=== PATIENT | male | born 1980 | race Caucasian/White ===

== ENCOUNTER 2018-10-13 11:24 | Emergency (ER) | payer SELFPAY ==
[2018-10-13] MEDS ORDERED: Sodium Chloride 0.9% 10 ML Syringe FLUSH PRN (12:01)
--- NOTE | 2018-10-13 12:23 | EDM.PDOC ---
ED HPI GENERAL MEDICAL PROBLEM - General Chief Complaint: Neurological Problem Stated Complaint: COLLAPSED ON SATURDAY Time Seen by Provider: 10/13/18 11:29 Source of Information: Reports: Patient, Family History Limitations: Reports: No Limitations - History of Present Illness INITIAL COMMENTS - FREE TEXT/NARRATIVE: The patient presents with right sided numbness and weakness. This weekend he was visiting family in [place]. He was feeling fine and he walked around the packer inspector in the house and he passed out. His said the patient was out for about 2 minutes and he had some shaking like with a fever and not full body convulsions. He may have hit his head. He had numbness and weakness to the right side of his body that includes his face, arm and leg. EMS took him to [facility] [place] and he had a complete work up done to include a CT of his head, EKG, and labs. It was thought he may have had a TIA. He was told to follow up with his health car provider and have an MRI done. He came to the ER because he is till having the numbness and weakness and he has some blurry vision at times. He denies having a headache. He has no fever, chills, or cough. He has no chest pain or shortness of breath. He has no abdominal pain, nausea or vomiting. This has never happened to him before He has hypertension and he is on losartin. Onset: Sudden Duration: Day(s): Severity: Moderate Improves with: Reports: None Worsens with: Reports: None Associated Symptoms: Reports: No Other Symptoms - Related Data Allergies Allergy/AdvReac Type Severity Reaction Status Date / Time No Known Allergies Allergy Verified 10/13/18 11:36 Home Meds: Home Meds Losartan [Cozaar] 50 mg PO DAILY 10/13/18 [History] Past Medical History Cardiovascular History: Reports: Hypertension Social & Family History - Family History Cardiac: Reports: Hypertension Neurological: Reports: CVA Other Neurological Family History: maternal grandmother - Tobacco Use Smoking Status *Q: Current Every Day Smoker Years of Tobacco use: 23 Packs/Tins Daily: 1 - Alcohol Use Days Per Week of Alcohol Use: 7 Number of Drinks Per Day: 6 Total Drinks Per Week: 42 - Recreational Drug Use Recreational Drug Use: Yes ED ROS GENERAL - Review of Systems Review Of Systems: See Below Constitutional: Reports: No Symptoms HEENT: Reports: No Symptoms Respiratory: Reports: No Symptoms Cardiovascular: Reports: No Symptoms Endocrine: Reports: No Symptoms GI/Abdominal: Reports: No Symptoms : Reports: No Symptoms Musculoskeletal: Reports: No Symptoms Skin: Reports: No Symptoms Neurological: Reports: Numbness (right side), Weakness (right side). Denies: Headache ED EXAM, NEURO - Physical Exam Exam: See Below Exam Limited By: No Limitations General Appearance: Alert, No Apparent Distress Eye Exam: Bilateral Eye: EOMI, PERRL Ears: Normal External Exam Nose: Normal Inspection Head Exam: Atraumatic, Normocephalic Neck: Normal Inspection Respiratory/Chest: No Respiratory Distress, Lungs Clear, Normal Breath Sounds Cardiovascular: Regular Rate, Rhythm, No Edema, No Murmur GI/Abdominal: Soft, Non-Tender, No Organomegaly, No Mass Neurological: Alert, Oriented x 3, Other (Mild weakness to right arm, hand and leg. Mild numbness with light palpation right face, arm and leg as compared to the right left side) Course - Vital Signs Last Recorded V/S: Last Vital Signs Temp 97.8 F 10/13/18 11:31 Pulse 106 H 10/13/18 11:31 Resp 16 10/13/18 11:31 BP 160/104 H 10/13/18 11:31 Pulse Ox 98 10/13/18 11:31 - Orders/Labs/Meds Orders: Active Orders 24 hr Category Date Time Status Cardiac Monitoring [RC] . DIRECTED Care 10/13/18 12:01 Active EKG Documentation Completion [RC] ASDIRECTED Care 10/13/18 12:09 Active Peripheral IV Care [RC] . DIRECTED Care 10/13/18 12:02 Active Sodium Chloride 0.9% [Saline Flush] Med 10/13/18 12:01 Active 10 ml FLUSH ASDIRECTED PRN Peripheral IV Insertion Adult [OM.PC] Stat Oth 10/13/18 12:01 Ordered EKG 12 Lead [EK] Stat Ther 10/13/18 12:09 Ordered Medication Orders Sodium Chloride (Saline Flush) 10 ml FLUSH ASDIRECTED PRN PRN Reason: Keep Vein Open Last Admin: 10/13/18 12:16 Dose: 10 ml Labs: Laboratory Tests 10/13/18 10/13/18 Range/Units 12:29 12:29 WBC 6.96 (4.23-9.07) K/mm3 RBC 5.04 (4.63-6.08) M/mm3 Hgb 16.4 (13.7-17.5) gm/L Hct 48.3 (40.1-51.0) % MCV 95.8 H (79.0-92.2) fl MCH 32.5 H (25.7-32.2) pg MCHC 34.0 (32.2-35.5) g/dl RDW Std Deviation 44.8 H (35.1-43.9) fL Plt Count 266 (163-337) K/mm3 MPV 8.7 L (9.4-12.3) fl Neut % (Auto) 51.9 (34.0-67.9) % Lymph % (Auto) 32.3 (21.8-53.1) % [place] % (Auto) 12.1 (5.3-12.2) % Eos % (Auto) 2.4 (0.8-7.0) Baso % (Auto) 0.9 (0.1-1.2) % Neut # (Auto) 3.61 (1.78-5.38) K/mm3 Lymph # (Auto) 2.25 (1.32-3.57) K/mm3 [place] # (Auto) 0.84 H (0.30-0.82) K/mm3 Eos # (Auto) 0.17 (0.04-0.54) K/mm3 Baso # (Auto) 0.06 (0.01-0.08) K/mm3 Sodium 142 (136-145) mEq/L Potassium 4.1 (3.5-5.1) mEq/L Chloride 105 (98-107) mEq/L Carbon Dioxide 25 (21-32) mEq/L Anion Gap 16.1 H (5-15) BUN 9 (7-18) mg/dL Creatinine 1.0 (0.7-1.3) mg/dL Est Cr Clr Drug Dosing 105.63 mL/min Estimated GFR (MDRD) > 60 (>60) mL/min BUN/Creatinine Ratio 9.0 L (14-18) Glucose 93 (74-106) mg/dL Calcium 9.4 (8.5-10.1) mg/dL Total Bilirubin 0.6 (0.2-1.0) mg/dL AST 32 (15-37) U/L ALT 35 (16-63) U/L Alkaline Phosphatase 65 (46-116) U/L Troponin I < 0.017 (0.00-0.056) ng/mL Total Protein 7.4 (6.4-8.2) g/dl Albumin 4.1 (3.4-5.0) g/dl Globulin 3.3 gm/dL Albumin/Globulin Ratio 1.2 (1-2) Meds: Medications Generic Name Dose Route Start Last Admin Trade Name Freq PRN Reason Stop Dose Admin Sodium Chloride 10 ml 10/13/18 12:01 10/13/18 12:16 Saline Flush FLUSH 10 ml ASDIRECTED PRN Administration Keep Vein Open - Re-Assessments/Exams Free Text/Narrative Re-Assessment/Exam: 10/13/18 12:25 I ordered an MRI of his brain, EKG, and labs. 10/13/18 14:20 His CBC and CMP look good. His troponin is negative. We were able to get an MRI of his brain. The MRI showed slight sinus findings believed to be chronic. Several minimal areas of increased signal within the subcortical white matter within the right frontal and right parietal region which is likely incidental. No other abnormal signal is seen within the brain parenchyma. No acute diffusion abnormalities are seen. 10/13/18 14:36 I called [facility] in [place] and talked with Dr Antonio the neurologist pulmonary care nurse. We discussed the MRI and the physical findings and he says the patient did not have a stroke but he is not sure why he is having the numbness and weakness on his right side. His office will call the patient to make an appointment. Departure - Departure Time of Disposition: 14:40 Disposition: Home, Self-Care 01 Condition: Good Clinical Impression: Right sided numbness, Right sided weakness - Discharge Information *PRESCRIPTION DRUG MONITORING PROGRAM REVIEWED*: Not Applicable *COPY OF PRESCRIPTION DRUG MONITORING REPORT IN PATIENT MARY KAY: Not Applicable Referrals: PCP,None [Primary Care Provider] - Forms: ED Department Discharge Additional Instructions: Take your medication as prescribed. It has been 2 weeks and if you are tolerating it then go up as directed. Please return if you are worse. Someone from Dr Antonio's office will be calling you for a follow up appointment. - My Orders Last 24 Hours: My Active Orders 10/13/18 12:01 Cardiac Monitoring [RC] . DIRECTED Sodium Chloride 0.9% [Saline Flush] 10 ml FLUSH ASDIRECTED PRN Peripheral IV Insertion Adult [OM.PC] Stat 10/13/18 12:02 Peripheral IV Care [RC] . DIRECTED 10/13/18 12:09 EKG Documentation Completion [RC] ASDIRECTED EKG 12 Lead [EK] Stat - Assessment/Plan Last 24 Hours: My Active Orders 10/13/18 12:01 Cardiac Monitoring [RC] . DIRECTED Sodium Chloride 0.9% [Saline Flush] 10 ml FLUSH ASDIRECTED PRN Peripheral IV Insertion Adult [OM.PC] Stat 10/13/18 12:02 Peripheral IV Care [RC] . DIRECTED 10/13/18 12:09 EKG Documentation Completion [RC] ASDIRECTED EKG 12 Lead [EK] Stat
--- NOTE | 2018-10-13 13:13 | MR ---
MRI brain Technique: T1 sagittal; T2, T2 FLAIR, T1 and diffusion axial; T1 and T2 gradient echo coronal images were obtained. Comparison: No prior intracranial imaging. Findings: Ventricles along with basal cisterns and sulci of the convexities are within normal limits for the patient's age. Normal signal void is seen within the major cerebral arteries within the skull base. Minimal area of increase signal is seen within subcortical white matter within the right frontal and parietal regions. No other abnormal signal is seen within the brain parenchyma. No midline shift or mass effect is seen. Small retention cyst is incidentally noted within the left maxillary sinus measuring 9.6 mm. Mild mucosal thickening seen within the ethmoid sinus. No acute diffusion abnormalities are seen. Impression: 1. Slight sinus findings believed to be chronic. 2. Several minimal areas of increased signal within the subcortical white matter within the right frontal and right parietal region which is likely incidental. No other abnormal signal is seen within the brain parenchyma. No acute diffusion abnormalities are seen. Diagnostic code #2
== END 2018-10-13 14:57 | disposition home or self-care (01) ==
LOC: JD.ED 11:24
DX: R53.1 Weakness (principal); R20.0 Anesthesia of skin; F17.210 Nicotine dependence, cigarettes, uncomplicated; I10 Essential (primary) hypertension; Z79.899 Other long term (current) drug therapy
CPT/HCPCS: 36415; 70551; 70551-26; 80053; 84484; 85025; 93005; 93010; 99284; 99284-25

== ENCOUNTER 2019-03-09 09:50 | Emergency (ER) | payer SELFPAY ==
[2019-03-09] MEDS ORDERED: Dextrose 5%-0.9% NaCl 1,000 ML IV SCH (10:15)
[2019-03-09] MEDS ORDERED: LORazepam 2 MG/ML SDV IVPUSH ONE (10:16)
[2019-03-09] MEDS ORDERED: Thiamine 200 MG/2 ML MDV IVPUSH ONE (10:20)
--- NOTE | 2019-03-09 10:20 | EDM.PDOC ---
ED HPI GENERAL MEDICAL PROBLEM - General Chief Complaint: Neurological Problem Stated Complaint: [facility] Time Seen by Provider: 03/09/19 10:15 Source of Information: Reports: Patient History Limitations: Reports: No Limitations - History of Present Illness INITIAL COMMENTS - FREE TEXT/NARRATIVE: 38-year-old male attends the ED after suffering an event which most likely was a seizure while seated in his vehicle. Unfortunately it was unwitnessed He states that he been drinking relatively heavily most of the weekend particular a Saturday night and fell and hit his head hard on the pavement with transient loss of consciousness. States Saturday he behaved himself and didn't drink much just today had about 3 or 4 beers. 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 Believes it was very short period of time like 20 or 30 seconds. He states he awoke with no loss of bladder control and no tongue injury. [place] very weak and dizzy and staggered into the building to get help. [place] his legs it hardly hold him up and he was a bit confused and disoriented as recognized by the people that helped him out. This suggests that he was probably postictal for a period of time. He knew that he could not drive. Has had one seizure before from alcohol withdrawal. Still feels very jittery and anxious. Has a headache. States on Saturday he fell on the pavement injuring the right side of his face and head. Has pain in the right side of his neck right shoulder right knee and pain in his thoracic and cervical spine area. Uncertain therefore is whether or not he suffered an intracranial bleed versus an alcohol withdrawal seizure this morning . Onset: Today Onset Date: 03/09/19 Onset Time: 09:30 Duration: Minutes: (Again not exactly sure what time this may have happened.) Location: Reports: Generalized (Generalized sense of confusion and disorientation and weakness.) Quality: Reports: Other Severity: Moderate (Generalized weakness) Improves with: Reports: Other (Feels weak mildly dizzy and mildly nauseated.) Worsens with: Reports: None Context: Reports: Other. Denies: Activity, Exercise, Lifting, Sick Contact, Trauma Associated Symptoms: Reports: Confusion (See history of present illness.), Diaphoresis, Loss of Appetite, Nausea/Vomiting, Weakness (Nausea without vomiting). 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) (Patient has no recollection of what is happened to him.) Headache Pain Score (Numeric/FACES): 3 - Related Data Allergies Allergy/AdvReac Type Severity Reaction Status Date / Time No Known Allergies Allergy Verified 10/13/18 11:36 Home Meds: Home Meds Losartan [Cozaar] 50 mg PO DAILY 10/13/18 [History] LORazepam [Ativan] 1 mg PO Q8H #10 tab 03/09/19 [Rx] Losartan [Cozaar] 50 mg PO DAILY #30 tab 03/09/19 [Rx] amLODIPine Besylate [Norvasc] 10 mg PO DAILY #30 tablet 03/09/19 [Rx] Past Medical History - Past Health History Medical/Surgical History: Denies Medical/Surgical History Cardiovascular History: Reports: Hypertension Psychiatric History: Reports: Other (See Below) (Chronic alcohol abuse.) Social & Family History - Family History Cardiac: Reports: Hypertension Neurological: Reports: CVA Other Neurological Family History: maternal grandmother - Tobacco Use Smoking Status *Q: Current Every Day Smoker Years of Tobacco use: 25 Packs/Tins Daily: 0.7 - Caffeine Use Caffeine Use: Reports: Coffee, Tea - Alcohol Use Days Per Week of Alcohol Use: 7 Number of Drinks Per Day: 4 Total Drinks Per Week: 28 - Recreational Drug Use Recreational Drug Use: No - Living Situation & Occupation Living situation: Reports: Occupation: Employed ED ROS GENERAL - Review of Systems Review Of Systems: See Below Constitutional: Reports: Malaise, Fatigue, Decreased Appetite. Denies: Fever, Chills HEENT: Reports: No Symptoms Respiratory: Reports: No Symptoms Cardiovascular: Reports: No Symptoms Endocrine: Reports: Fatigue GI/Abdominal: Reports: Nausea : Reports: No Symptoms Musculoskeletal: Reports: Muscle Pain (Generalized myalgia) Skin: Reports: No Symptoms Neurological: Reports: Dizziness, Headache, Weakness Psychiatric: Reports: Anxiety Hematologic/Lymphatic: Reports: No Symptoms Immunologic: Reports: No Symptoms - Physical Exam Exam: See Below Exam Limited By: No Limitations General Appearance: Alert, WD/WN, Anxious, Mild Distress, Other (Vital signs show temperature 37.5 pulse is 101 and sinus. Respiratory is 12 BP is elevated 170 08/16/11 initially sats are 100% on room air.) Eye Exam: Bilateral Eye: Normal Inspection Nose: Normal Inspection, Normal Mucosa Throat/Mouth: Normal Inspection, Normal Lips, Normal Oropharynx. No: Evidence of Tongue Biting Head Exam: Atraumatic, Normocephalic Neck: Normal Inspection, Supple, Non-Tender, Full Range of Motion. No: Lymphadenopathy (L), Lymphadenopathy (R) Respiratory/Chest: No Respiratory Distress, Lungs Clear, Normal Breath Sounds, No Accessory Muscle Use Cardiovascular: Normal Peripheral Pulses, Regular Rate, Rhythm, No Edema, No Gallop, No Murmur, No Rub, Other (Is hypertensive upon arrival. Appears to be mostly due to anxiety.) GI/Abdominal: Normal Bowel Sounds, Soft, Non-Tender, No Organomegaly, No Abnormal Bruit, No Mass, Pelvis Stable Neuro Exam (Abbreviated): Alert, Oriented, CN II-XII Intact, Normal Cognition, No Motor/Sensory Deficits DTR: 1+: Bicep (R), Bicep (L), Patella (R), Patella (L), Achilles (R), Achilles (L) Back Exam: Normal Inspection, Full Range of Motion. No: CVA Tenderness (R) Extremities: Normal Inspection, Normal Range of Motion, Non-Tender, No Pedal Edema, Normal Capillary Refill Psychiatric: Anxious Skin Exam: Warm, Dry, Intact, Normal Color, No Rash EKG INTERPRETATION EKG Date: 03/09/19 Time: 10:21 Rhythm: NSR Rate (Beats/Min): 96 [place]: Normal P-Wave: Present QRS: Other (Criteria for left ventricular hypertrophy pattern.) ST-T: Other (Diffuse early repolarization pattern) EKG Interpretation Comments: Borderline ECG Course - Vital Signs Last Recorded V/S: Last Vital Signs Temp 37.5 C 03/09/19 09:57 Pulse 110 H 03/09/19 13:50 Resp 17 03/09/19 13:50 BP 151/87 H 03/09/19 13:50 Pulse Ox 99 03/09/19 13:50 - Orders/Labs/Meds Orders: Active Orders 24 hr Category Date Time Status EKG Documentation Completion [RC] STAT Care 03/09/19 10:17 Active Labs: Laboratory Tests 03/09/19 03/09/19 03/09/19 Range/Units 10:44 10:44 10:44 WBC 5.86 (4.23-9.07) K/mm3 RBC 4.94 (4.63-6.08) M/mm3 Hgb 16.2 (13.7-17.5) gm/dl Hct 47.6 (40.1-51.0) % MCV 96.4 H (79.0-92.2) fl MCH 32.8 H (25.7-32.2) pg MCHC 34.0 (32.2-35.5) g/dl RDW Std Deviation 44.6 H (35.1-43.9) fL Plt Count 277 (163-337) K/mm3 MPV 9.1 L (9.4-12.3) fl Neut % (Auto) 73.2 H (34.0-67.9) % Lymph % (Auto) 13.7 L (21.8-53.1) % Morton % (Auto) 11.1 (5.3-12.2) % Eos % (Auto) 0.9 (0.8-7.0) Baso % (Auto) 0.9 (0.1-1.2) % Neut # (Auto) 4.30 (1.78-5.38) K/mm3 Lymph # (Auto) 0.80 L (1.32-3.57) K/mm3 Morton # (Auto) 0.65 (0.30-0.82) K/mm3 Eos # (Auto) 0.05 (0.04-0.54) K/mm3 Baso # (Auto) 0.05 (0.01-0.08) K/mm3 PT 10.0 (9.7-12.0) SECONDS INR < 0.93 APTT 26 (22-31) SECONDS Sodium 138 (136-145) mEq/L Potassium 4.1 (3.5-5.1) mEq/L Chloride 101 (98-107) mEq/L Carbon Dioxide 24 (21-32) mEq/L Anion Gap 17.1 H (5-15) BUN 9 (7-18) mg/dL Creatinine 1.0 (0.7-1.3) mg/dL Est Cr Clr Drug Dosing 105.63 mL/min Estimated GFR (MDRD) > 60 (>60) mL/min BUN/Creatinine Ratio 9.0 L (14-18) Glucose 111 H (74-106) mg/dL Lactic Acid (0.4-2.0) mmol/L Calcium 9.0 (8.5-10.1) mg/dL Magnesium 2.0 (1.8-2.4) mg/dl Total Bilirubin 1.0 (0.2-1.0) mg/dL AST 84 H (15-37) U/L ALT 90 H (16-63) U/L Alkaline Phosphatase 69 (46-116) U/L Total Protein 7.7 (6.4-8.2) g/dl Albumin 4.3 (3.4-5.0) g/dl Globulin 3.4 gm/dL Albumin/Globulin Ratio 1.3 (1-2) Lipase 144 (73-393) U/L Ethyl Alcohol 0.00 (0.00) gm% Ketones (0.0-0.3) mM 03/09/19 03/09/19 Range/Units 10:44 10:44 WBC (4.23-9.07) K/mm3 RBC (4.63-6.08) M/mm3 Hgb (13.7-17.5) gm/dl Hct (40.1-51.0) % MCV (79.0-92.2) fl MCH (25.7-32.2) pg MCHC (32.2-35.5) g/dl RDW Std Deviation (35.1-43.9) fL Plt Count (163-337) K/mm3 MPV (9.4-12.3) fl Neut % (Auto) (34.0-67.9) % Lymph % (Auto) (21.8-53.1) % Morton % (Auto) (5.3-12.2) % Eos % (Auto) (0.8-7.0) Baso % (Auto) (0.1-1.2) % Neut # (Auto) (1.78-5.38) K/mm3 Lymph # (Auto) (1.32-3.57) K/mm3 Morton # (Auto) (0.30-0.82) K/mm3 Eos # (Auto) (0.04-0.54) K/mm3 Baso # (Auto) (0.01-0.08) K/mm3 PT (9.7-12.0) SECONDS INR APTT (22-31) SECONDS Sodium (136-145) mEq/L Potassium (3.5-5.1) mEq/L Chloride (98-107) mEq/L Carbon Dioxide (21-32) mEq/L Anion Gap (5-15) BUN (7-18) mg/dL Creatinine (0.7-1.3) mg/dL Est Cr Clr Drug Dosing mL/min Estimated GFR (MDRD) (>60) mL/min BUN/Creatinine Ratio (14-18) Glucose (74-106) mg/dL Lactic Acid 1.2 (0.4-2.0) mmol/L Calcium (8.5-10.1) mg/dL Magnesium (1.8-2.4) mg/dl Total Bilirubin (0.2-1.0) mg/dL AST (15-37) U/L ALT (16-63) U/L Alkaline Phosphatase (46-116) U/L Total Protein (6.4-8.2) g/dl Albumin (3.4-5.0) g/dl Globulin gm/dL Albumin/Globulin Ratio (1-2) Lipase (73-393) U/L Ethyl Alcohol (0.00) gm% Ketones 0.3 (0.0-0.3) mM Meds: Medications Discontinued Medications Generic Name Dose Route Start Last Admin Trade Name Freq PRN Reason Stop Dose Admin Amlodipine Besylate 10 mg 03/09/19 21:00 Norvasc PO BEDTIME TAWNYA Amlodipine Besylate 10 mg 03/09/19 12:53 03/09/19 13:17 Norvasc PO 03/09/19 12:54 10 mg ONETIME ONE Administration Hydralazine HCl 10 mg 03/09/19 12:10 03/09/19 12:39 Apresoline IVPUSH 03/09/19 12:11 10 mg ONETIME ONE Administration Dextrose/Sodium Chloride 1,000 mls @ 500 mls/hr 03/09/19 10:15 03/09/19 10:47 Dextrose 5%-Normal Saline IV 500 mls/hr ASDIRECTED TAWNYA Administration Lorazepam 1 mg 03/09/19 10:16 03/09/19 10:47 Ativan IVPUSH 03/09/19 10:17 1 mg ONETIME ONE Administration Thiamine HCl 100 mg 03/09/19 10:20 03/09/19 10:47 Vitamin B-1 IVPUSH 03/09/19 10:21 100 mg ONETIME ONE Administration - Radiology Interpretation Free Text/Narrative:: 38-year-old male arrives in the ED per [facility]. 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 He believes he may have lost consciousness for maybe 20-30 seconds. Not lose control of his bowel or bladder and did not bite his tongue. He states that took him a while to gain ability to get out of the vehicle as his arms and legs wouldn't work right and then he had to stagger into the building to get help. Is recognized that he was in difficulties and 911 was called and EMS was summoned. The history strongly suggests that he was postictal for about 10-15 minutes suggest that he has suffered a seizure. He has had a seizure once in the past from withdrawal of alcohol. On this occasion he been drinking very heavily on Saturday and actually fell and hit his head injured his neck his right shoulder his right knee and then was laid up most of Saturday didn't eat or drink much and had 2 or 3 beers yesterday. This morning he felt very jittery and restless and agitated upon going to the [employer]. Suspect that he suffered a repeat alcohol withdrawal seizure. Plan CT head will be done. He will have CT of his cervical spine done as well because of his fall and injuries to the right bo-face and neck on Saturday 2 days ago. He will have routine lab work carried out including a urine drug screen and a blood alcohol level and lactic acid level. - Re-Assessments/Exams Free Text/Narrative Re-Assessment/Exam: 03/09/19 11:40 CT of the head is within normal limits with no intracranial bleeding or mass effect and no skull fractures. Similarly C-spine T of the cervical spine reveals no malalignment or fractures. Similarly CT thoracic spine shows degenerative changes throughout the mid thoracic spine but no fractures and spinous processes in particular are not in malalignment or any fractures. 03/09/19 11:42 Labs reveal a normal white count at 5.86. Auto differential is 73.2% neutrophils. Hemoglobin is 16.2 with hematocrit of 47.6 suggesting mild hemoconcentration. MCV is slightly elevated at 96.4. Platelet count 277,000. PT is 10.0 with an INR of less than 0.93. PTT is 26. Sodium 138 with a potassium of 4.1. Chloride is 11 with a bicarbonate of 24. And a gap is mildly elevated at 17.1. BUN is 9 with a creatinine of 1.0. GFR is greater than 60. Glucose is 111. Lactic acid is 1.2. Calcium was 9.0 with a magnesium of 2.0. Bilirubin is 1.0 AST is mildly elevated at 84 and ELT is 90. Alk phosphatase normal at 69. Total protein 7.7. Lipase 144 blood alcohol is 0.00. His blood pressure remains markedly elevated. His average systolic is 160 and his diastolic is 112. He states he used to be on losartan but ran out and has never had a refill. Multiple other iza inhibitors caused him to have a significant cough. He estimates she's been off blood pressure medicines and for 3 months. I will give him hydralazine 10 mg IV and Norvasc 10 mg by mouth. 03/09/19 13:12 BP is coming down to 151/86 with hydralazine 10 mg IV. Plan I'm going to discharge him on Norvasc 10 mg daily and losartan 50 mg daily and I have written scripts for 6 months as he finds it very difficult to get back into the doctor's office for review to the long hours he works 10-14 hours daily. Andree is going to need his blood pressure checked in about 2 weeks time and then again in 6 weeks' time. In regards to the seizure I strongly suspect it was likely alcohol withdrawal is happened in the past. Advised to cut back on his alcohol use an effort to prevent similar occurrences. Departure - Departure Time of Disposition: 13:13 Disposition: Home, Self-Care 01 Condition: Fair Clinical Impression: Uncontrolled hypertension, Alcohol withdrawal seizure without complication - Discharge Information *COPY OF PRESCRIPTION DRUG MONITORING REPORT IN PATIENT MARY KAY: Not Applicable Prescriptions: amLODIPine Besylate [Norvasc] 10 mg PO DAILY #30 tablet LORazepam [Ativan] 1 mg PO Q8H #10 tab Losartan [Cozaar] 50 mg PO DAILY #30 tab Instructions: Alcohol Use Disorder Referrals: PCP,None [Primary Care Provider] - Forms: ED Department Discharge, ED Return to Work/School Form Additional Instructions: Evaluation the emergency room today in regards to suspect alcohol withdrawal seizure. Unfortunately the seizure activity was unwitnessed but the history is strongly suggestive of a short 20-30 seconds seizure with mild postictal. Weakness drowsiness and sometimes difficulty talking for the next 10 or 15 minutes. As you indicated you have not had much to drink since drinking heavily on Saturday. Multiple injuries occurred from a fall on Saturday night with blunt force trauma to your face and right temporal frontal head. CT scan of your head reveals no intracranial bleeding or skull fractures. Pain right side of neck likely secondary to the fall revealed no broken bones in the neck but strain of the ligaments and surrounding muscles. Similarly CT of the upper back bones reveals no broken bones again indicating strain and bone contusion from fall. You've also injured her right shoulder mostly the deltoid musculature. Abraded the right knee without any evidence of fractures. You're given Ativan 1 mg intravenously in the ED. I would suggest a second tablet to be taken about o' clock today and then again at midnight 1 to be taken every 8 hours for 2 days and then one every 12 hours morning and bedtime for 2 more days to prevent any further alcohol withdrawal seizures. Second problem was uncontrolled hypertension which you move out as you have not been on blood pressure medication for a lengthy period of time. She did remain elevated while you were in the emergency room. Received a medication called hydralazine 10 mg IV which brought her blood pressure down to the near-normal range of 150/79. We will would like her blood pressure be under 140 and under 90 at all times. You are also started on oral medication Norvasc 10 mg in the ED which will start to work in 2-4 hours. Also suggest that you take losartan 50 mg daily with the Norvasc once daily every morning for blood pressure control. I've written 6 refills but you need to do need to have your blood pressure checked by the medical care provider in about 2 weeks time and then again in about 6 weeks' time to make sure that it is responding adequately to medication. Suggest of course on cutting down on the amount of alcohol consumed on a daily basis to try and prevent any acute withdrawal seizures from alcohol in the future. - My Orders Last 24 Hours: My Active Orders 03/09/19 10:17 EKG Documentation Completion [RC] STAT - Assessment/Plan Last 24 Hours: My Active Orders 03/09/19 10:17 EKG Documentation Completion [RC] STAT
--- NOTE | 2019-03-09 11:46 | CT ---
Head CT Technique: Multiple axial sections through the brain were obtained. Comparison: Previous MRI brain of 10/13/18. Findings: Ventricles along with basal cisterns and sulci over the convexities appear within normal limits for the patient's age. No abnormal parenchymal densities are seen. No evidence of intracranial hemorrhage. No midline shift or mass effect is seen. Bone window settings were reviewed which show no acute calvarial abnormality. Visualized paranasal sinuses show mild mucosal thickening within the anterior ethmoid sinuses. Mastoid sinuses are clear. Impression: 1. Mild mucosal thickening within the anterior ethmoid sinuses which is felt compatible with mild chronic sinusitis. 2. No acute intracranial abnormality is seen. Diagnostic code #2
--- NOTE | 2019-03-09 11:46 | CT ---
CT thoracic spine Technique: Multiple axial sections through the thoracic spine were obtained. Reconstructed coronal and sagittal images were reviewed. Findings: Mild disc space narrowing is noted within the mid thoracic spine. No fracture is identified. No abnormal subluxation is seen. Mild disc space narrowing is noted within the lower cervical spine. Minimal scoliosis is noted. Impression: 1. Mild degenerative change. Minimal scoliosis. 2. Nothing acute is appreciated on CT study of the thoracic spine. Diagnostic code #2
--- NOTE | 2019-03-09 11:47 | CT ---
CT cervical spine Technique: Multiple axial sections were obtained from above the C1 inferiorly to the bottom of T2. Reconstructed sagittal and coronal images were reviewed. Findings: Mild disc space narrowing is noted at C6-C7 with slight posterior and posterolateral osteophytes. No fracture is identified. No abnormal subluxation is seen. Slight neural foraminal narrowing is noted on the right side at C6-C7. Other neural foramina are patent. No central canal stenosis is seen. Impression: 1. Minimal degenerative change. Nothing acute is seen on CT study of the cervical spine. Diagnostic code #2
[2019-03-09] MEDS ORDERED: hydrALAZINE 20 MG/ML SDV IVPUSH ONE (12:10)
[2019-03-09] MEDS ORDERED: amLODIPine 10 MG Tab PO ONE (12:53)
[2019-03-09] MEDS ORDERED: amLODIPine 10 MG Tab PO SCH (21:00)
== END 2019-03-09 13:53 | disposition home or self-care (01) ==
LOC: JD.ED 09:50
DX: R56.9 Unspecified convulsions (principal); F10.230 Alcohol dependence with withdrawal, uncomplicated; I10 Essential (primary) hypertension; F17.210 Nicotine dependence, cigarettes, uncomplicated; Z79.899 Other long term (current) drug therapy
CPT/HCPCS: 36415; 70450; 72125; 72128; 80053; 80320; 82009; 83605; 83690; 83735; 85025; 85610; 85730; 93005; 96361; 96374; 96375; 99285; A9270; J0360; J2060; J3411; J7042; G0480

== ENCOUNTER 2019-03-18 09:44 | Emergency (ER) | payer SELFPAY ==
[2019-03-18] MEDS ORDERED: Sodium Chloride 0.9% 10 ML Syringe FLUSH PRN (10:35)
[2019-03-18] MEDS ORDERED: Sodium Chloride 0.9% 1,000 ML IV SCH (10:45)
--- NOTE | 2019-03-18 13:46 | EDM.PDOC ---
ED HPI GENERAL MEDICAL PROBLEM - General Chief Complaint: Neurological Problem Stated Complaint: SEIZURE Time Seen by Provider: 03/18/19 10:17 Source of Information: Reports: Patient History Limitations: Reports: No Limitations - History of Present Illness INITIAL COMMENTS - FREE TEXT/NARRATIVE: The patient presents by private vehicle for possible syncope or seizure. The patient's found him lying in the shower. He ways he got lightheaded and passed out. This was not witnessed. When she found him, he was not shaking. This has happened on and about a week ago. I saw him after the episode in August. I did an MRI of his brain. That looked good. He was supposed to follow up with Dr Antonio a neurologist at [facility] in [place] but he did not. He says he drinks alcohol daily. He drinks a few beers. That is an improvement. He used to drink liquor also. He has a mild headache now. He has no neck pain. He has no chest pain or shortness of breath. He has no abdominal pain, nausea or vomiting. Onset: Sudden Duration: Minutes: Location: Reports: Head Quality: Reports: Ache Severity: Mild Improves with: Reports: None Worsens with: Reports: None Associated Symptoms: Reports: Headaches. Denies: Chest Pain, Cough, Fever/ Chills, Nausea/Vomiting, Shortness of Breath Headache Pain Score (Numeric/FACES): 2 - Related Data Allergies Allergy/AdvReac Type Severity Reaction Status Date / Time No Known Allergies Allergy Verified 03/18/19 10:14 Home Meds: Home Meds LORazepam [Ativan] 1 mg PO Q8H #10 tab 03/09/19 [Rx] Losartan [Cozaar] 50 mg PO DAILY #30 tab 03/09/19 [Rx] amLODIPine Besylate [Norvasc] 10 mg PO DAILY #30 tablet 03/09/19 [Rx] Past Medical History - Past Health History Medical/Surgical History: Denies Medical/Surgical History Cardiovascular History: Reports: Hypertension Neurological History: Reports: Seizure Psychiatric History: Reports: Anxiety, PTSD - Past Surgical History HEENT Surgical History: Reports: Adenoidectomy Social & Family History - Family History Cardiac: Reports: Hypertension Neurological: Reports: CVA Other Neurological Family History: maternal grandmother - Tobacco Use Smoking Status *Q: Current Every Day Smoker Years of Tobacco use: 23 Packs/Tins Daily: 1 - Caffeine Use Caffeine Use: Reports: Coffee - Alcohol Use Days Per Week of Alcohol Use: 7 Number of Drinks Per Day: 6 Total Drinks Per Week: 42 - Recreational Drug Use Recreational Drug Use: No - Living Situation & Occupation Living situation: Reports: Occupation: Employed ED ROS GENERAL - Review of Systems Review Of Systems: See Below Constitutional: Reports: No Symptoms HEENT: Reports: No Symptoms Respiratory: Reports: No Symptoms Cardiovascular: Reports: No Symptoms Endocrine: Reports: No Symptoms GI/Abdominal: Reports: No Symptoms : Reports: No Symptoms Musculoskeletal: Reports: No Symptoms Neurological: Reports: Headache - Physical Exam Exam: See Below Exam Limited By: No Limitations General Appearance: Alert, No Apparent Distress Ears: Normal External Exam Nose: Normal Inspection Head Exam: Atraumatic, Normocephalic Neck: Normal Inspection Respiratory/Chest: No Respiratory Distress, Lungs Clear, Normal Breath Sounds Cardiovascular: Regular Rate, Rhythm, No Edema, No Murmur GI/Abdominal: Soft, Non-Tender, No Organomegaly, No Mass Neuro Exam (Abbreviated): Alert, Oriented, No Motor/Sensory Deficits EKG INTERPRETATION EKG Date: 03/18/19 Time: 10:38 Rhythm: NSR Rate (Beats/Min): 91 [place]: Normal P-Wave: Present QRS: Normal ST-T: Normal QT: Normal Course - Vital Signs Last Recorded V/S: Last Vital Signs Temp 98.2 F 03/18/19 10:05 Pulse 97 03/18/19 10:05 Resp 18 03/18/19 10:05 BP Pulse Ox 100 03/18/19 10:05 - Orders/Labs/Meds Orders: Active Orders 24 hr Category Date Time Status Cardiac Monitoring [RC] . DIRECTED Care 03/18/19 10:35 Active EKG Documentation Completion [RC] STAT Care 03/18/19 10:36 Active Holter Monitor 48 Hours [RC] .PRN Care 03/18/19 13:37 Active Peripheral IV Care [RC] . DIRECTED Care 03/18/19 10:36 Active Sodium Chloride 0.9% [Normal Saline] 1,000 ml Med 03/18/19 10:45 Active IV .BOLUS Sodium Chloride 0.9% [Saline Flush] Med 03/18/19 10:35 Active 10 ml FLUSH ASDIRECTED PRN Peripheral IV Insertion Adult [OM.PC] Stat Oth 03/18/19 10:35 Ordered Medication Orders Sodium Chloride (Normal Saline) 1,000 mls @ 1,000 mls/hr IV .BOLUS TAWNYA Last Admin: 03/18/19 11:02 Dose: 1,000 mls/hr Sodium Chloride (Saline Flush) 10 ml FLUSH ASDIRECTED PRN PRN Reason: Keep Vein Open Last Admin: 03/18/19 11:02 Dose: 10 ml Labs: Laboratory Tests 03/18/19 03/18/19 Range/Units 10:56 10:56 WBC 5.43 (4.23-9.07) K/mm3 RBC 4.88 (4.63-6.08) M/mm3 Hgb 16.5 (13.7-17.5) gm/dl Hct 46.9 (40.1-51.0) % MCV 96.1 H (79.0-92.2) fl MCH 33.8 H (25.7-32.2) pg MCHC 35.2 (32.2-35.5) g/dl RDW Std Deviation 44.8 H (35.1-43.9) fL Plt Count 245 (163-337) K/mm3 MPV 9.1 L (9.4-12.3) fl Neut % (Auto) 59.4 (34.0-67.9) % Lymph % (Auto) 26.0 (21.8-53.1) % [place] % (Auto) 10.5 (5.3-12.2) % Eos % (Auto) 2.8 (0.8-7.0) Baso % (Auto) 1.3 H (0.1-1.2) % Neut # (Auto) 3.23 (1.78-5.38) K/mm3 Lymph # (Auto) 1.41 (1.32-3.57) K/mm3 [place] # (Auto) 0.57 (0.30-0.82) K/mm3 Eos # (Auto) 0.15 (0.04-0.54) K/mm3 Baso # (Auto) 0.07 (0.01-0.08) K/mm3 Sodium 138 (136-145) mEq/L Potassium 4.2 (3.5-5.1) mEq/L Chloride 101 (98-107) mEq/L Carbon Dioxide 25 (21-32) mEq/L Anion Gap 16.2 H (5-15) BUN 6 L (7-18) mg/dL Creatinine 0.8 (0.7-1.3) mg/dL Est Cr Clr Drug Dosing 132.04 mL/min Estimated GFR (MDRD) > 60 (>60) mL/min BUN/Creatinine Ratio 7.5 L (14-18) Glucose 91 (74-106) mg/dL Calcium 9.6 (8.5-10.1) mg/dL Total Bilirubin 0.6 (0.2-1.0) mg/dL AST 59 H (15-37) U/L ALT 73 H (16-63) U/L Alkaline Phosphatase 76 (46-116) U/L Troponin I < 0.017 (0.00-0.056) ng/mL Total Protein 8.3 H (6.4-8.2) g/dl Albumin 4.5 (3.4-5.0) g/dl Globulin 3.8 gm/dL Albumin/Globulin Ratio 1.2 (1-2) Ethyl Alcohol 0.00 (0.00) gm% Meds: Medications Generic Name Dose Route Start Last Admin Trade Name Freq PRN Reason Stop Dose Admin Sodium Chloride 1,000 mls @ 1,000 mls/hr 03/18/19 10:45 03/18/19 11:02 Normal Saline IV 1,000 mls/hr .BOLUS TAWNYA Administration Sodium Chloride 10 ml 03/18/19 10:35 03/18/19 11:02 Saline Flush FLUSH 10 ml ASDIRECTED PRN Administration Keep Vein Open - Re-Assessments/Exams Free Text/Narrative Re-Assessment/Exam: 03/18/19 13:52 I ordered an IV NS 1L bolus, EKG, and labs. His EKG shows a NSR with no acute changes. His labs look good. I am concerned he may have passed out. I have ordered a holter monitor and I will have him follow up with Dr Galan. Departure - Departure Time of Disposition: 13:55 Disposition: Home, Self-Care 01 Condition: Good Clinical Impression: Syncope Qualifiers: Syncope type: unspecified Qualified Code(s): R55 - Syncope and collapse - Discharge Information *PRESCRIPTION DRUG MONITORING PROGRAM REVIEWED*: No *COPY OF PRESCRIPTION DRUG MONITORING REPORT IN PATIENT MARY KAY: No Referrals: PCP,None [Primary Care Provider] - Shabbir Bowen MD [Physician] - 1 Week Forms: ED Department Discharge Additional Instructions: Drink plenty of fluids such as water and gatorade. Wear the holter monitor for 2 days. Follow up with Dr Bowen within a week. Please return if you are worse. - My Orders Last 24 Hours: My Active Orders 03/18/19 10:35 Cardiac Monitoring [RC] . DIRECTED Sodium Chloride 0.9% [Saline Flush] 10 ml FLUSH ASDIRECTED PRN Peripheral IV Insertion Adult [OM.PC] Stat 03/18/19 10:36 EKG Documentation Completion [RC] STAT Peripheral IV Care [RC] . DIRECTED 03/18/19 10:45 Sodium Chloride 0.9% [Normal Saline] 1,000 ml IV .BOLUS 03/18/19 13:37 Holter Monitor 48 Hours [RC] .PRN - Assessment/Plan Last 24 Hours: My Active Orders 03/18/19 10:35 Cardiac Monitoring [RC] . DIRECTED Sodium Chloride 0.9% [Saline Flush] 10 ml FLUSH ASDIRECTED PRN Peripheral IV Insertion Adult [OM.PC] Stat 03/18/19 10:36 EKG Documentation Completion [RC] STAT Peripheral IV Care [RC] . DIRECTED 03/18/19 10:45 Sodium Chloride 0.9% [Normal Saline] 1,000 ml IV .BOLUS 03/18/19 13:37 Holter Monitor 48 Hours [RC] .PRN
== END 2019-03-18 14:20 | disposition home or self-care (01) ==
LOC: JD.ED 09:44
DX: R55 Syncope and collapse (principal); F41.9 Anxiety disorder, unspecified; I10 Essential (primary) hypertension; F17.210 Nicotine dependence, cigarettes, uncomplicated; Z79.899 Other long term (current) drug therapy
CPT/HCPCS: 36415; 80053; 80320; 84484; 85025; 93005; 93225; 93226; 96360; 99284; J7040; 93010; 99283; G0480